=== PATIENT | female | born 1965 | race Caucasian/White ===

== ENCOUNTER 2017-08-24 20:21 | Emergency (ER) | payer OTHER, MEDICAID ==
[~2017-08-24] VITALS: Ht 165.1 cm; Wt 69.0 kg
[~2017-08-24 20:21] MED LIST: BP MED; METHADONE
[2017-08-24] MEDS ORDERED: KETOROLAC 60MG/2ML VIAL IM ONE (21:45)
[2017-08-24 23:42] VITALS: BP 132/85
== END 2017-08-24 23:42 | disposition home or self-care (01) ==
LOC: ER 21:15
DX: S83.92XA Sprain of unspecified site of left knee, initial encounter (principal); S90.32XA Contusion of left foot, initial encounter; I10 Essential (primary) hypertension; F17.200 Nicotine dependence, unspecified, uncomplicated; Z86.19 Personal history of other infectious and parasitic diseases; W01.0XXA Fall on same level from slipping, tripping and stumbling without subsequent striking against object, initial encounter; Y93.89 Activity, other specified; Y92.89 Other specified places as the place of occurrence of the external cause; Y99.8 Other external cause status
CPT/HCPCS: 73562; 73630; 96372; 99284; J1885

== ENCOUNTER 2018-10-30 19:42 | Emergency (ER) | payer OTHER, MEDICAID ==
[~2018-10-30] VITALS: Ht 165.1 cm; Wt 71.0 kg
[2018-10-30] MEDS ORDERED: FUROSEMIDE 20MG TABLET PO ONE (23:30)
[2018-10-30 23:57] LABS: CHLORIDE 104 mEq/L (98-107)
[2018-10-31 00:09] LABS: HEMATOCRIT. 37.2 % (36.0-48.0); HEMOGLOBIN. 12.5 g/dL (12.0-16.0); LYMPHOCYTES % 32.2 % (20.0-50.0); MEAN CORPUSCULAR HEMOGLOBIN 29.7 pg (28.0-32.0); MEAN CORPUSCULAR VOLUME 88.7 fL (81.0-99.0); MEAN PLATELET VOLUME 7.9 fl (7.4-10.4); MONOCYTES % 10.9 % (2.0-8.0); NEUTROPHILS % 51.9 % (40.0-76.0); PLATELET 291 x1000/uL (130-400); RED BLOOD CELL COUNT 4.19 mill/uL (4.2-5.4); RED CELL DISTRIBUTION WIDTH 13.4 % (11.6-14.6)
[2018-10-31 01:37] VITALS: BP 157/81
== END 2018-10-31 01:48 | disposition home or self-care (01) ==
LOC: ER 19:42
DX: I10 Essential (primary) hypertension (principal); R60.0 Localized edema; E11.9 Type 2 diabetes mellitus without complications; F17.200 Nicotine dependence, unspecified, uncomplicated; Z79.899 Other long term (current) drug therapy
CPT/HCPCS: 36415; 82962; 83036; 83880; 93970; 99284

== ENCOUNTER 2022-06-04 11:15 | Inpatient (IN) | payer MEDICARE, MEDICAID ==
[~2022-06-04] VITALS: Ht 162.6 cm; Wt 68.0 kg
[2022-06-04 12:44] LABS: BASOPHILS % 0.7 % (0.0-2.0); EOSINOPHILS % 0.9 % (0.0-5.0); HEMATOCRIT. 35.5 % (36.0-48.0); HEMOGLOBIN. 11.9 g/dL (12.0-16.0); MEAN CORPUSCULAR HEMOGLOBIN 29.9 pg (28.0-32.0); MEAN CORPUSCULAR VOLUME 89.6 fL (81.0-99.0); MEAN PLATELET VOLUME 8.4 fl (7.4-10.4); MONOCYTES % 5.3 % (2.0-8.0); NEUTROPHILS % 75.1 % (40.0-76.0); PLATELET 268 x1000/uL (130-400); RED BLOOD CELL COUNT 3.96 mill/uL (4.2-5.4); RED CELL DISTRIBUTION WIDTH 13.4 % (11.6-14.6)
[2022-06-04 13:02] LABS: CHLORIDE 104 mEq/L (98-107)
[2022-06-04 13:12] LABS: ETHANOL BLOOD < 10 mg/dL
[2022-06-04 13:14] LABS: PROTHROMBIN TIME 10.5 sec (9.6-11.0)
[2022-06-04] MEDS ORDERED: IPRATROPIUM/ALBUTEROL 0.5-3(2.5)MG/3ML NEB NEB PRN (15:45)
[2022-06-04] MEDS ORDERED: MAGNESIUM/ALUMINUM HYDROXIDE/SIMETHICONE 30ML UDC PO PRN (15:45)
[2022-06-04] MEDS ORDERED: ZOLPIDEM TARTRATE 5MG TABLET PO PRN (15:45)
[2022-06-04] MEDS ORDERED: GUAIFENESIN 200MG/10ML SUGAR FREE UDC PO PRN (15:45)
[2022-06-04] MEDS ORDERED: NITROGLYCERIN 0.4MG TABLET SL SL PRN (15:45)
[2022-06-04] MEDS ORDERED: ONDANSETRON HCL 4MG/2ML INJ IV PRN (15:45)
[2022-06-04] MEDS ORDERED: DOCUSATE SODIUM 100MG CAPSULE PO PRN (15:45)
[2022-06-04] MEDS ORDERED: NA PHOS,M-B/NA PHOS,DI-BA ENEMA 118ML PR PRN (15:45)
[2022-06-04] MEDS ORDERED: ACETAMINOPHEN 325MG TABLET PO PRN (15:45)
[2022-06-04] MEDS ORDERED: CLONIDINE 0.1MG TABLET PO PRN (15:45)
[2022-06-04 16:53] LABS: CLARITY URINE CLEAR (CLEAR); COLOR URINE YELLOW (YELLOW); KETONES URINE NEGATIVE (NEGATIVE); LEUKOCYTE ESTERASE URINE NEGATIVE (NEGATIVE); NITRITE URINE NEGATIVE (NEGATIVE); OCCULT BLOOD URINE NEGATIVE (NEGATIVE); PH URINE 6.5 (4.5-8.0); PROTEIN URINE NEGATIVE (NEGATIVE); SPECIFIC GRAVITY URINE 1.006 (1.005-1.030); UROBILINOGEN URINE 0.2 E.U./dL (0.2-1.0)
[2022-06-04 16:57] LABS: T4 FREE 1.06 ng/dL (0.76-1.46)
[2022-06-04] MEDS: ENOXAPARIN 40MG/0.4ML SYR SUBCUT SCH (17:09)
[2022-06-04 17:16] LABS: FOLIC ACID (FOLATE) SERUM 19.7 ng/mL (>5.38)
[2022-06-04 17:19] LABS: *AMPHETAMINES SCREEN URINE NEGATIVE (NEGATIVE); *BARBITURATES SCREEN URINE NEGATIVE (NEGATIVE); *BENZODIAZEPINES SCREEN URINE NEGATIVE (NEGATIVE); *COCAINE SCREEN URINE NEGATIVE (NEGATIVE); CANNABINOID URINE SCREEN NEGATIVE (NEGATIVE); OPIATES URINE SCREEN PRESUMTIVE POSITIVE (NEGATIVE); PHENCYCLIDINE URINE SCREEN NEGATIVE (NEGATIVE)
[2022-06-04 17:20] LABS: METHADONE URINE SCREEN PRESUMTIVE POSITIVE (NEGATIVE)
[2022-06-04 18:26] VITALS: BP 151/80
[2022-06-04 18:27] VITALS: BP 151/80
[2022-06-04] MEDS: DILTIAZEM HCL 60MG TABLET PO SCH (18:31)
[2022-06-04] MEDS ORDERED: LOSA1TAB34 PO (18:41)
[2022-06-04] MEDS ORDERED: METH-819 PO (18:41)
[2022-06-04 20:00] VITALS: BP 139/68
[2022-06-04] MEDS: FAMOTIDINE 20MG TABLET PO SCH (20:47)
[2022-06-05] VITALS (9 sets, daily range): BP systolic 101–149; BP diastolic 56–82
[2022-06-05] MEDS: DILTIAZEM HCL 60MG TABLET PO SCH ×4 (00:33→17:14)
[2022-06-05 02:10] LABS: CREATINE KINASE MB FRACTION 2.9 ng/mL (0.5-3.6)
[2022-06-05] MEDS: KETOROLAC 15MG/ML VIAL IV PRN ×3 (04:24→18:10)
[2022-06-05 07:35] LABS: BASOPHILS % 0.9 % (0.0-2.0); EOSINOPHILS % 4.4 % (0.0-5.0); HEMATOCRIT. 32.5 % (36.0-48.0); HEMOGLOBIN. 11.2 g/dL (12.0-16.0); LYMPHOCYTES % 29.2 % (20.0-50.0); MEAN CORPUSCULAR HEMOGLOBIN 29.9 pg (28.0-32.0); MEAN PLATELET VOLUME 8.7 fl (7.4-10.4); MONOCYTES % 10.5 % (2.0-8.0); PLATELET 292 x1000/uL (130-400); RED BLOOD CELL COUNT 3.74 mill/uL (4.2-5.4); RED CELL DISTRIBUTION WIDTH 13.3 % (11.6-14.6)
[2022-06-05 07:50] LABS: CHLORIDE 103 mEq/L (98-107)
[2022-06-05 07:57] LABS: PHOSPHORUS 3.9 mg/dL (2.5-4.9)
[2022-06-05] MEDS ORDERED: ASPIRIN 325MG EC TABLET PO SCH (09:00)
[2022-06-05] MEDS: FAMOTIDINE 20MG TABLET PO SCH ×2 (09:00→20:50)
[2022-06-05] MEDS: ENOXAPARIN 40MG/0.4ML SYR SUBCUT SCH (18:10)
[2022-06-06] VITALS: BP 118/65
[2022-06-06 04:00] VITALS: BP 127/74
[2022-06-06] MEDS: DILTIAZEM HCL 60MG TABLET PO SCH ×4 (05:38→18:33)
[2022-06-06 08:00] VITALS: BP 137/71
[2022-06-06] MEDS: ACETAMINOPHEN 325MG TABLET PO PRN (08:36)
[2022-06-06] MEDS: FAMOTIDINE 20MG TABLET PO SCH ×2 (08:37→22:26)
[2022-06-06 12:00] VITALS: BP 134/70
[2022-06-06 16:00] VITALS: BP 120/65
[2022-06-06] MEDS ORDERED: TRAMADOL 50MG TABLET PO PRN (21:16)
[2022-06-06 22:00] VITALS: BP 138/59
[2022-06-06] MEDS: KETOROLAC 30MG/ML VIAL IV PRN (22:31)
[2022-06-07] VITALS (7 sets, daily range): BP systolic 120–154; BP diastolic 54–86
[2022-06-07] MEDS: DILTIAZEM HCL 60MG TABLET PO SCH ×5 (01:58→23:27)
[2022-06-07] MEDS: FAMOTIDINE 20MG TABLET PO SCH ×2 (08:54→20:17)
[2022-06-07] MEDS: KETOROLAC 30MG/ML VIAL IV PRN ×2 (08:55→18:09)
[2022-06-08] VITALS (51 sets, daily range): BP systolic 101–182; BP diastolic 46–101
[2022-06-08] MEDS: KETOROLAC 30MG/ML VIAL IV PRN ×2 (00:07→10:25)
[2022-06-08] MEDS: DILTIAZEM HCL 60MG TABLET PO SCH ×4 (05:16→23:26)
[2022-06-08] MEDS ORDERED: CEFAZOLIN SODIUM 1000MG/VIAL ONE ×2 (06:57)
[2022-06-08] MEDS ORDERED: PROPOFOL 200MG/20ML VIAL IV ONE ×2 (07:10→07:57)
[2022-06-08] MEDS ORDERED: MIDAZOLAM HCL 2 MG/2 ML VIAL ONE (07:21)
[2022-06-08] MEDS ORDERED: ONDANSETRON HCL 4MG/2ML INJ ONE (08:10)
[2022-06-08] MEDS ORDERED: SUCCINYLCHOLINE CHLORIDE 200MG/10ML IV ONE (08:10)
[2022-06-08] MEDS ORDERED: DEXAMETHASONE 4MG/ML 1ML VIAL ONE (08:10)
[2022-06-08] MEDS ORDERED: ROCURONIUM BROMIDE 10MG/ML VIAL 5ML IV ONE (08:11)
[2022-06-08] MEDS ORDERED: KETOROLAC 30MG/ML VIAL ONE (08:31)
[2022-06-08] MEDS ORDERED: GLYCOPYRROLATE 0.2 MG/ML 2ML VIAL ONE (08:31)
[2022-06-08] MEDS: FAMOTIDINE 20MG TABLET PO SCH ×2 (09:00→20:27)
[2022-06-08] MEDS ORDERED: LIDOCAINE HCL 1% 20ML VIAL (Pyxis) INJ ONE (09:10)
[2022-06-08] MEDS ORDERED: NICARDIPINE 100 MG in SODIUM CHLORIDE 0.9% 60 ML IV PRN (09:40)
[2022-06-08] MEDS ORDERED: FENTANYL CITRATE/PF 50MCG/ML 2ML VIAL IV PRN (10:00)
[2022-06-08] MEDS: DEXAMETHASONE 4MG/ML 1ML VIAL IV SCH ×3 (11:18→23:25)
[2022-06-08] MEDS: MORPHINE SULFATE 4 MG/ML CPJ (NOT FOR IM USE) IV PRN ×2 (11:26→14:59)
[2022-06-08] MEDS ORDERED: KETOROLAC 30MG/ML VIAL IV PRN (12:15)
[2022-06-08] MEDS: CEFAZOLIN 1000MG PREMIX 50 ML IV SCH ×2 (13:28→21:18)
[2022-06-08] MEDS ORDERED: CEFAZOLIN SODIUM 1000MG/VIAL IV SCH (14:00)
[2022-06-08] MEDS: ACETAMINOPHEN 325MG TABLET PO PRN ×2 (16:05→20:27)
[2022-06-09] VITALS (57 sets, daily range): BP systolic 99–170; BP diastolic 37–106
[2022-06-09] MEDS: CEFAZOLIN 1000MG PREMIX 50 ML IV SCH ×2 (05:17→17:43)
[2022-06-09] MEDS: DILTIAZEM HCL 60MG TABLET PO SCH ×3 (05:18→17:43)
[2022-06-09] MEDS: DEXAMETHASONE 4MG/ML 1ML VIAL IV SCH ×2 (05:18→11:44)
[2022-06-09] MEDS: MORPHINE SULFATE 4 MG/ML CPJ (NOT FOR IM USE) IV PRN ×4 (07:58→20:18)
[2022-06-09] MEDS: FAMOTIDINE 20MG TABLET PO SCH ×2 (08:00→20:16)
[2022-06-09] MEDS ORDERED: HYDRALAZINE 20MG/ML VIAL IV PRN (08:45)
[2022-06-09] MEDS ORDERED: NALOXONE HCL 0.4MG/ML VIAL IV PRN (14:15)
[2022-06-10] VITALS (27 sets, daily range): BP systolic 115–161; BP diastolic 64–90
[2022-06-10] MEDS: DILTIAZEM HCL 60MG TABLET PO SCH ×5 (00:08→23:36)
[2022-06-10] MEDS: MORPHINE SULFATE 4 MG/ML CPJ (NOT FOR IM USE) IV PRN ×2 (07:17→18:39)
[2022-06-10] MEDS: FAMOTIDINE 20MG TABLET PO SCH ×2 (08:01→20:59)
[2022-06-10 09:40] LABS: BASOPHILS % 0.1 % (0.0-2.0); HEMATOCRIT. 33.8 % (36.0-48.0); HEMOGLOBIN. 11.4 g/dL (12.0-16.0); MEAN CORPUSCULAR HEMOGLOBIN 29.6 pg (28.0-32.0); MEAN CORPUSCULAR VOLUME 88.2 fL (81.0-99.0); MEAN PLATELET VOLUME 7.9 fl (7.4-10.4); MONOCYTES % 5.7 % (2.0-8.0); NEUTROPHILS % 85.2 % (40.0-76.0); PLATELET 302 x1000/uL (130-400); RED BLOOD CELL COUNT 3.84 mill/uL (4.2-5.4)
[2022-06-10 09:43] LABS: CHLORIDE 105 mEq/L (98-107)
[2022-06-11] VITALS (16 sets, daily range): BP systolic 119–164; BP diastolic 62–91
[2022-06-11] MEDS: DILTIAZEM HCL 60MG TABLET PO SCH ×4 (07:47→23:14)
[2022-06-11] MEDS: FAMOTIDINE 20MG TABLET PO SCH ×2 (07:48→21:15)
[2022-06-11] MEDS: MORPHINE SULFATE 4 MG/ML CPJ (NOT FOR IM USE) IV PRN ×2 (08:21→21:16)
[2022-06-12] VITALS: BP 127/63
[2022-06-12 04:00] VITALS: BP 130/80
[2022-06-12] MEDS: DILTIAZEM HCL 60MG TABLET PO SCH ×3 (06:26→17:03)
[2022-06-12 08:00] VITALS: BP 139/66
[2022-06-12] MEDS: FAMOTIDINE 20MG TABLET PO SCH (08:02)
[2022-06-12 12:00] VITALS: BP 167/88
[2022-06-12 14:47] VITALS: BP 134/80
[2022-06-12 16:00] VITALS: BP 134/80
== END 2022-06-12 17:43 | disposition home health service (06) | DRG 471 ==
LOC: ER 11:15 → SUPCPDRO 15:33 → 8WST 18:04 → MICUNO 06-08 09:30 → MICUSO 06-10 15:28 → 8WST 06-11 09:00
PROVIDERS: ADMIT Internal Medicine; ATTEND Internal Medicine
PROC: 0RG10K0 Fusion of Cervical Vertebral Joint with Nonautologous Tissue Substitute, Anterior Approach, Anterior Column, Open Approach (ICD-10-PCS; principal; 2022-06-08)
PROC: 0RB30ZZ Excision of Cervical Vertebral Disc, Open Approach (ICD-10-PCS; 2022-06-08)
PROC: 4A11X4G Monitoring of Peripheral Nervous Electrical Activity, Intraoperative, External Approach (ICD-10-PCS; 2022-06-08)
PROC: 0RG10A0 Fusion of Cervical Vertebral Joint with Interbody Fusion Device, Anterior Approach, Anterior Column, Open Approach (ICD-10-PCS; 2022-06-08)
DX: M48.02 Spinal stenosis, cervical region (principal); G82.50 Quadriplegia, unspecified; M47.12 Other spondylosis with myelopathy, cervical region; E44.1 Mild protein-calorie malnutrition; G95.29 Other cord compression; M50.022 Cervical disc disorder at C5-C6 level with myelopathy; I10 Essential (primary) hypertension; Z20.822 Contact with and (suspected) exposure to COVID-19; D64.9 Anemia, unspecified; M50.122 Cervical disc disorder at C5-C6 level with radiculopathy; K75.9 Inflammatory liver disease, unspecified; E11.9 Type 2 diabetes mellitus without complications; M48.061 Spinal stenosis, lumbar region without neurogenic claudication; G56.03 Carpal tunnel syndrome, bilateral upper limbs; G89.4 Chronic pain syndrome; R13.10 Dysphagia, unspecified; F15.90 Other stimulant use, unspecified, uncomplicated; F17.210 Nicotine dependence, cigarettes, uncomplicated; Z68.25 Body mass index [BMI] 25.0-25.9, adult; Z82.49 Family history of ischemic heart disease and other diseases of the circulatory system; Z83.3 Family history of diabetes mellitus; Z86.73 Personal history of transient ischemic attack (TIA), and cerebral infarction without residual deficits; Z98.1 Arthrodesis status
CPT/HCPCS: 36415; 70551; 71045; 72040; 72141; 72146; 72148; 76000; 80048; 80053; 80061; 80305; 80320; 81003; 82550; 82553; 82607; 82746; 83036; 83540; 83550; 83735; 84100; 84439; 84443; 84484; 85025; 86850; 86900; 87077; 87186; 87426; 88304; 88311; 93005; 93306; 93970; 95925; 95926; 95928; 95929; 97116; 97162; 97164; 97166; 97530; 97535; 99291; C1893; C9803; J0330; J0360; J0690; J1100; J1650; J1885; J2250; J2270; J2405; J2704; J3010; J3490; J7050; L0172; C1713; C1762; C1889; G0480

== ENCOUNTER → 2022-08-21 | Outpatient (CLI) | payer MEDICARE, MEDICAID ==
[~2022-08-21] MED LIST changes: -BP MED; +LOSA1TAB34 PO; +METH-819 PO; -METHADONE
== END | disposition home or self-care (01) ==
LOC: RAD 14:51
PROVIDERS: ATTEND Neurological Surgery
DX: M54.2 Cervicalgia (principal)
CPT/HCPCS: 72052

== ENCOUNTER 2024-03-01 | Emergency (ER) | payer MEDICARE, MEDICAID ==
[~2024-03-01] VITALS: Ht 165.1 cm; Wt 75.0 kg
[2024-03-01 00:24] VITALS: TEMP 98.7; O2SAT 98
[2024-03-01 00:29] LABS: BASOPHILS % 0.8 % (0.0-2.0); EOSINOPHILS % 4.3 % (0.0-5.0); HEMATOCRIT. 29.8 % (36.0-48.0); HEMOGLOBIN. 9.9 g/dL (12.0-16.0); LYMPHOCYTES % 24.1 % (20.0-50.0); MEAN CORPUSCULAR HEMOGLOBIN 27.9 pg (28.0-32.0); MEAN CORPUSCULAR HGB CONC 33.3 g/dL (31.0-37.0); MEAN CORPUSCULAR VOLUME 83.8 fL (81.0-99.0); MEAN PLATELET VOLUME 7.2 fl (7.4-10.4); MONOCYTES % 9.2 % (2.0-8.0); NEUTROPHILS % 61.6 % (40.0-76.0); PLATELET 425 x1000/uL (130-400); RED BLOOD CELL COUNT 3.55 mill/uL (4.2-5.4); RED CELL DISTRIBUTION WIDTH 15.1 % (11.6-14.6); WHITE BLOOD COUNT 5.4 x1000/uL (4.5-11.0)
[2024-03-01 00:34] LABS: CHLORIDE 103 mEq/L (98-107); POTASSIUM 3.5 mEq/L (3.5-5.1); SODIUM 137 mEq/L (136-145)
[2024-03-01 00:35] LABS: CARBON DIOXIDE 29 mEq/L (21-32)
[2024-03-01 00:36] LABS: CALCIUM 9.4 mg/dL (8.7-10.4)
[2024-03-01 00:40] LABS: CREATININE 0.8 mg/dL (0.6-1.0); GLUCOSE 132 mg/dL (70-105); UREA NITROGEN BLOOD 11 mg/dL (9-23)
[2024-03-01] MEDS ORDERED: CEPH500C2 MT (03:17)
[2024-03-01 04:53] VITALS: BP 183/88; PULSE 80; RESP 15
== END 2024-03-01 04:36 | disposition home or self-care (01) ==
LOC: ER
DX: R60.0 Localized edema (principal); L03.116 Cellulitis of left lower limb; L03.115 Cellulitis of right lower limb; I10 Essential (primary) hypertension; I20.9 Angina pectoris, unspecified; Z86.73 Personal history of transient ischemic attack (TIA), and cerebral infarction without residual deficits
CPT/HCPCS: 36415; 80048; 83880; 85025; 93970; 99284